=== PATIENT | female | born 1970 ===

== ENCOUNTER → 2021-01-03 09:02 | Outpatient (BNVA) | payer BC, SELFPAY | PROVIDERS: PCP Physician Assistant; Visit Provider Family Medicine Adult Medicine ==

== ENCOUNTER 2023-10-22 09:36 | Outpatient (AMB) | payer MEDICARE, OTHER, SELFPAY ==
--- NOTE | 2023-10-22 09:38 | MHC.PC.OV ---
Vital Signs 10/22/23 09:39 Height 5 ft 3 in Weight 243 lb BMI 43.0 Intake Visit Reasons: HTN/Medication F/U Allergies cephalexin [Keflex] Allergy (Unknown, Verified 01/01/22 13:00) Unknown ibuprofen Allergy (Unknown, Verified 01/01/22 13:00) unknown penicillin V Allergy (Unknown, Verified 01/01/22 13:00) Unknown Sulfa (Sulfonamide Antibiotics) Allergy (Unknown, Verified 01/01/22 13:00) Unknown tramadol Allergy (Unknown, Verified 01/01/22 13:00) unknown hydrochlorothiazide Adverse Reaction (Intermediate, Verified 01/01/22 13:00) gout arthritis Tobacco use date assessed: 10/31/20 [facility] Medical History Cervical arthritis Lumbar spondylosis Surgical History History of cholecystectomy History of hysterectomy History of incision and drainage Family History Father No problems noted. Mother Breast cancer Social History Housing: Apartment Alcohol intake: never Patient Tobacco Use Status: Current everyday Tobacco user Cigarettes Per Day: 10 e-Cigarette/Vaping Use: Never Used service: No Current occupational status: disabled Questionnaire Thrive Questionnaire Date Thrive assessed: 10/31/20 SAVAGE-7 AMB Questionnaire SAVAGE-7 Date SAVAGE - 7 assessed: 10/31/20 Source: Developed by Drs. Fred Flood, Judi Lomeli, Tio Yi and colleagues, with an educational bo from [employer]. Physical exam (Primary Care) Tobacco/Smoking Status: Tobacco use Status Tobacco use date assessed 10/31/20 06/08/21 09:53 Patient Tobacco Use Status Current everyday Tobacco 01/01/22 13:04 e-Cigarette/Vaping Use Never Used 06/08/21 09:53 Thrive Assessment: Date of Thrive Assessment Date Thrive assessed 10/31/20 06/08/21 09:53 Coding
[2023-10-22 09:39] VITALS: BP 170/120; PULSE 85; O2SAT 98; BMI 43.0
--- NOTE | 2023-10-22 09:42 | MHC.PC.OV ---
Vital Signs 10/22/23 09:39 Height 5 ft 3 in Weight 243 lb BMI 43.0 BP 170/120 H Blood Pressure Location Lt brachial Position Sitting Pulse 85 Pulse Source Pulse Oximeter Pulse Oximetry (%) 98 Oxygen Delivery Method Room Air Intake Visit Reasons: PE Intake Note: Patient is here today for a physical. Intellectual Property Paralegal Required: No Accompanied by: Self / Same As Patient Allergies cephalexin [Keflex] Allergy (Unknown, Verified 10/22/23 09:51) Unknown ibuprofen Allergy (Unknown, Verified 10/22/23 09:51) unknown penicillin V Allergy (Unknown, Verified 10/22/23 09:51) Unknown Sulfa (Sulfonamide Antibiotics) Allergy (Unknown, Verified 10/22/23 09:51) Unknown tramadol Allergy (Unknown, Verified 10/22/23 09:51) unknown hydrochlorothiazide Adverse Reaction (Intermediate, Verified 10/22/23 09:51) gout arthritis Tobacco use date assessed: 10/22/23 Dental Screening Dental Screen Date: 10/22/23 Did you have a dental visit in the last 12 months?: No Did you have a dental problem in the last 6 months where you did not have access to dental care?: No Was dental information given to patient?: Patient has dentist HPI PE HPI Details Patient is a 53-year-old female here today for routine annual physical. Patient has a past medical history significant for obesity, hypertension, smoker, chronic axillary hidradenitis, depression. .. ..HTN:? Patient reports she has been out of her blood pressure medication over the last 2 weeks. Will restart her amlodipine and propranolol. Reports been under lot of stress and continues to smoke which likely causing higher blood pressures..? She does report having times of vision disturbances and headaches though denies any chest discomfort, shortness of breath. .. ..Axillary hidradenitis:? Patient has multiple bouts of axillary hidradenitis requiring prednisone and oral antibiotics.? She has had multiple attempts on D&C of her cyst though continues to recurrent. She would like to follow up with Dermatology for more definitive treatment. .. ..Insomnia: Is using? ambien nightly and understands this medication is habit-forming though reports she needs to get good sleep in order to function well during the day.? She has trialed many different [id number] sleep aids and prescribed sleep medications in the past.. .. ..Smoking: Unfortunately still smokes 10 cigs.? She reports she does have Chantix at home though is not ready to start the medication as she feels her stress is too high at this time due to her family issues.? We did discuss perhaps giving a referral to the lung cancer screening program as she has been smoking since her teenage years though she declines at this time. .. ..Chronic back pain: She does have chronic lower back pain to which she has has done therapy in medication in the past that have not been effective. She continues to be in pain though has been able to manage. Continues to ambulate with walker for assistance. .. .Depression; reports she has been able to deal with her depression. Has not been talking to a therapist. She has family issues that seem to trigger her depression .. Colon cancer screening: Needs colonoscopy Vaccines: Up-to-date with pneumonia, COVID vaccines. Needs new tetanus vaccine-declines today, need shingles .. Mammogram: Needs up-to-date mammogram [employer]: need PAPs - See [facility] ( [place]) she promises to make an appointment for Pap screening [facility] Medical History Cervical arthritis Lumbar spondylosis Surgical History History of incision and drainage History of hysterectomy History of cholecystectomy Family History Father No problems noted. Mother Breast cancer Social History Housing: Apartment Alcohol intake: never Patient Tobacco Use Status: Current everyday Tobacco user Cigarettes Per Day: 10 e-Cigarette/Vaping Use: Never Used service: No Current occupational status: disabled Cognitive needs: No Hearing needs: No Vision needs: No Questionnaire PHQ-9 Over the last 2 weeks, how often have you been bothered by any of the following problems? 1. Little interest or pleasure in doing things: not at all 2. Feeling down, depressed, or hopeless: not at all 3. Trouble falling or staying asleep, or sleeping too much: not at all 4. Feeling tired or having little energy: not at all 5. Poor appetite or overeating: not at all 6. Feeling bad about yourself - or that you are a failure or have let yourself or your family down: not at all 7. Trouble concentrating on things, such as reading the newspaper or watching television: not at all 8. Moving or speaking so slowly that other people could have noticed. Or the opposite - being so fidgety or restless that you have been moving around a lot more than usual: not at all 9. Thoughts that you would be better off or of hurting yourself in some way: not at all Total score: 0 Depression Screening Interpretation: Negative Depression Screening Done: Yes 70111 - PHQ-9 Billing: Yes Source: Developed by Drs. Fred Flood, Judi Lomeli, Tio Yi and colleagues, with an educational bo from [employer]. Thrive Questionnaire Date Thrive assessed: 10/22/23 I am a: Patient What is your living situation today?: I have a steady place to live Within the past 12 months, did the food you bought not last and you didn't have the money to get more?: Never true Within the past 12 months, did you worry whether your food would run out before you got money to buy more?: Never true Do you have trouble paying for medicines?: No Do you have trouble getting transportation to medical appointments?: No Do you have trouble paying your heating and electricity bill?: No Do you have trouble taking care of your child, family member or friend?: No Do you have trouble with day-to-day activities such as bathing, preparing meals, shopping, managing finances, etc.?: No Are you currently unemployed and looking for a job?: No Are you interested in more education?: No Please select the resources that you would like help with: None Currently or been in a relationship where the following occur: No concerns reported THRIVE Score: 0 AUDIT C Alcohol Use Questionnaire (AUDIT-C) 1. How often do you have a drink containing alcohol?: Never 3. How often do you have six or more drinks on one occasion?: Never Total Score: 0 Score Reviewed/Action Taken: No SAVAGE-7 AMB Questionnaire SAVAGE-7 Date SAVAGE - 7 assessed: 10/22/23 Feeling nervous, anxious, or on edge: 0 = Not at all Not being able to stop or control worryin = Not at all Worrying too much about different things: 0 = Not at all Trouble relaxin = Not at all Being so restless that it is hard to sit still: 0 = Not at all Becoming easily annoyed or irritable: 0 = Not at all Feeling afraid as if something awful might happen: 0 = Not at all Total SAVAGE-7 score (0-4 normal; 5-9 mild; 10-14 moderate; 15-21 severe): 0 Source: Developed by Drs. Fred Flood, Judi Lomeli, Tio Yi and colleagues, with an educational bo from [employer]. SAVAGE-7 Assessment Billing SAVAGE-7 Assessment Tool: SAVAGE-7 Assessment 29358 Review of Systems Const Denies body aches, Denies chills, Denies excessive sweating, Denies fatigue, Denies fever(s) and Denies headache(s) Eyes Denies blurry vision ENT Denies dysphagia, Denies vertigo, Denies dizziness, Denies headache(s), Denies hearing loss and Denies tinnitus Card Denies chest pain, Denies chest pain with activity, Denies syncope, Denies irregular heart rhythm and Denies dyspnea Resp Denies chest congestion, Denies cough, Denies hemoptysis, Denies dyspnea and Denies wheezing GI Denies abdominal pain, Denies melena, Denies hematochezia, Denies coffee ground emesis, Denies dysphagia, Denies diarrhea, Denies nausea and Denies vomiting Denies urinary frequency, Denies dysuria, Denies urinary hesitancy and Denies urinary urgency Musc Denies arthralgias, Denies limited range of motion, Denies muscle cramps and Denies muscle weakness Skin/Breast Denies rash and Denies skin ulcer Neuro Denies Abnormal speech present, Denies confusion, Denies vertigo, Denies dizziness, Denies syncope, Denies headache(s), Denies memory loss and Denies seizure-like activity Psych Denies anxiety, Denies confusion, Denies depression, Denies memory loss, Denies panic attacks and Denies paranoia Endo Denies excessive sweating, Denies fatigue, Denies flushing, Denies polydipsia and Denies polyuria Aller/Immun Denies wheezing Physical exam (Primary Care) BMI result Body Mass Index 43.0 Tobacco/Smoking Status: Tobacco use Status Tobacco use date assessed 10/31/20 06/08/21 09:53 Patient Tobacco Use Status Current everyday Tobacco 01/01/22 13:04 e-Cigarette/Vaping Use Never Used 06/08/21 09:53 Are you ready to quit: Yes Tobacco cessation counseling provided: Yes Items discussed: Nicotine replacement Relapse Prevention: discussed the importance of a supportive environment, discussed negative mood or depression after quitting, weight gain after smoking is common and discussed dietary, exercise and/or lifestyle changes Number of minutes spent counselin CPT code: 03712 - 4-10 Minutes Depression Screening Interpretation: Negative Thrive Assessment: Date of Thrive Assessment Date Thrive assessed 10/31/20 06/08/21 09:53 Currently or been in a relationship where the following occur: No concerns reported Const General: cooperative, comfortable, no acute distress, alert and awake; No confusion Orientation/consciousness: oriented to person, oriented to place, patient oriented x3 and No confusion HENMT Head: Yes normocephalic Ears: external ears normal and TM's normal bilaterally Face and sinus: No sinus tenderness Mouth: Normal oral and palatal mucosa present and tongue normal Teeth and gingiva: dentition normal and gingiva normal Throat: Yes posterior oropharynx normal, Yes tonsils normal and Yes uvula midline Eyes Conjunctivae: conjunctivae normal Sclerae: sclerae normal Pupils: Equal, round and reactive pupils present EOM: EOMs intact bilaterally Direct Ophthalmoscopy: No no photophobia Neck Neck: Yes no lymphadenopathy, No tender and Yes no JVD Thyroid: Thyroid normal Carotids: no bruits Chest Chest palpation & inspection: no tenderness Resp Effort & Inspection: normal respiratory effort, no audible wheezes, not labored and no stridor Auscultation: no crackles, no rales, no rhonchi and no wheezes Cardio Jugular venous distension: no JVD Rate: regular rate, not bradycardic and not tachycardic Rhythm: regular rhythm Bruits: no carotid bruits Peripheral pulses: Peripheral pulses 2+ throughout GI Inspection: Yes normal to inspection, No abdominal wall ecchymosis and No visible herniation Palpation (GI): Soft to palpation, nontender, no guarding, not rigid and No hepatosplenomegaly present Auscultation: normoactive bowel sounds Abdomen image: 1. CYSTIC LIKE ERYTHEMATOUS MASS OVER THE ABDOMINAL SKIN. General: Yes no CVA tenderness Back/Spine/Pelvis Back: no CVA tenderness and No back tenderness Cervical Spine: cervical ROM normal Thoracic/Lumbar Spine: thoracic and lumbar spine normal to inspection, straight leg raise negative bilaterally, No thoraco-lumbar ROM limited and No lumbar spinal tenderness Skin Lesions: no lesions Rashes: no rashes Wounds: no wounds Neuro General: oriented to person, oriented to place, patient oriented x3, CN's II-XI intact bilaterally and No confusion Cranial nerves: Yes Equal, round and reactive pupils present and Yes Normal accommodation reflex present Cognition (Neuro): normal cognition Speech: No Abnormal speech present Gait exam (Neuro): Normal gait present Motor exam (neuro): 5/5 motor strength present throughout Extrem Right upper extremity: full ROM; no cyanosis Left upper extremity: full ROM; no cyanosis Right lower extremity: no edema Left lower extremity: no edema Psych Appearance: grossly normal Mental Status: mental status grossly normal Affect: normal affect Attitude: cooperative Thought process: Normal thought process present Assessment and Plan Assessment & Plan (1) Annual physical exam: Code(s): Z00.00 - Encounter for general adult medical examination without abnormal findings (2) HTN (hypertension): Code(s): I10 - Essential (primary) hypertension Qualifiers: Hypertension type: essential hypertension Qualified Code(s): I10 - Essential (primary) hypertension Plan: Patient's blood pressure today in office elevated. Has been without her blood pressure medication over last 2 weeks. Will restart amlodipine and propranolol. Advised to monitor blood pressure more regularly at home to ensure stable. She denies checking blood pressure at home on a regular basis. Goal blood pressures to be below 140/90. (3) Smoker: Code(s): F17.200 - Nicotine dependence, unspecified, uncomplicated Plan: Patient does understand she needs to quit smoking. She is interested in restarting Chantix though . (4) Hidradenitis: Code(s): L73.2 - Hidradenitis suppurativa Plan: Patient again has another episode axillary hidradenitis. Was referred to general surgeon though has canceled the appointment. She is requesting Augmentin and prednisone yet again. Will also give her antiseptic cleanser in hopes to reduce the frequency of infection. AGAIN ADVISED PATIENT TO REESTABLISH WITH GENERAL SURGEON FOR MORE PERMANENT TREATMENT. WE DID DISCUSS THE LONG-TERM AFFECTS CHRONIC ANTIBIOTIC USE. (5) MDD (major depressive disorder), recurrent episode, moderate: Code(s): F33.1 - Major depressive disorder, recurrent, moderate Plan: Patient's PHQ-9 score 0. She reports her depression is fairly well controlled. Does deal with stress and anxiety due to family issues. At this time not interested in mental health therapy or psychiatric medication at this time. (6) Insomnia: Code(s): G47.00 - Insomnia, unspecified Qualifiers: Insomnia type: primary Qualified Code(s): F51.01 - Primary insomnia Plan: Patient reports she has tried to take a holiday zolpidem though was not able to get full 8 hours asleep. She continues to need Ambien help her sleep. Will continue her on 10 mg Ambien to help her sleep.. 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 (7) Breast cancer screening: Code(s): Z12.39 - Encounter for other screening for malignant neoplasm of breast Qualifiers: Breast cancer screening modality: mammogram Qualified Code(s): Z12.31 - Encounter for screening mammogram for malignant neoplasm of breast Plan: Patient willing to get mammogram (8) Colon cancer screening: Code(s): Z12.11 - Encounter for screening for malignant neoplasm of colon Plan: Patient willing to get colonoscopy. She believes she has colon polyps (9) Lumbar spondylosis: Code(s): M47.816 - Spondylosis without myelopathy or radiculopathy, lumbar region Plan: Patient has chronic low back pain that she is able to manage. Using walker assistance. Not interested in any further injections or medications Orders: Orders Comprehensive Gates. Panel Fast Today I10 - Essential (primary) hypertension MM screening mammo BI Today Z12.31 - Encounter for screening mammogram for malignant neoplasm of breast Microalbumin, Random (w Creat) Today I10 - Essential (primary) hypertension Complete Blood Count no Diff Today I10 - Essential (primary) hypertension Referrals Gastroenterology Referral Z12.11 - Encounter for screening for malignant neoplasm of colon Dermatology Referral L73.2 - Hidradenitis suppurativa Medications: New varenicline 0.5 mg PO; Take 0.5 mg qd x 3 days, then 0.5 mg b.i.d. x4 days 7 days 11 tabs 0RF F17.200 - Nicotine dependence, unspecified, uncomplicated varenicline 1 mg PO BID 28 days 56 tabs 3RF F17.200 - Nicotine dependence, unspecified, uncomplicated prednisone take 3 tabs x 3 days , take 2 tabs x 3 days , take 1 tablet x3 days 10 mg PO DIRECTED 9 days 18 tabs 0RF I88.9 - Nonspecific lymphadenitis, unspecified amoxicillin-pot clavulanate 875-125 mg 1 tab PO BID 7 days 14 tabs 0RF I88.9 - Nonspecific lymphadenitis, unspecified Refilled propranolol ER 60 mg PO DAILY 90 days 90 caps 2RF I10 - Essential (primary) hypertension zolpidem (Ambien) 10 mg PO BEDTIME 30 days PRN 30 tabs 3RF sleep G47.00 - Insomnia, unspecified amlodipine 10 mg PO DAILY 90 tabs 2RF I10 - Essential (primary) hypertension furosemide (Lasix) 20 mg PO DAILY 10 days 10 tabs 0RF I10 - Essential (primary) hypertension Discontinued oxycodone-acetaminophen 5-325 mg (Percocet) Partial Fill upon patient request. Discontinued Reason: Doctor's Order 1 tab PO BID 10 tabs 0RF pain Patient Instructions: Goal: COMPLETELY QUIT SMOKING, BLOOD PRESSURE TO BE BELOW 140/90 Barriers: Adherence to physical activity and healthy eating habits, chronic low back pain. Coding Level of Care Code Est Pt Prev Care 40-64y(49050) Diagnoses Annual physical exam Z00.00 Essential hypertension I10 Hypertension type: essential hypertension Smoker F17.200 Hidradenitis L73.2 MDD (major depressive disorder), recurrent episode, moderate F33.1 Primary insomnia F51.01 Insomnia type: primary Encounter for screening mammogram for malignant neoplasm of breast Z12.31 Breast cancer screening modality: mammogram Colon cancer screening Z12.11 Lumbar spondylosis M47.816 Additional Codes SAVAGE-7 Assessment Billing - SAVAGE-7 Assessment Tool: SAVAGE-7 Assessment [id number] ([id number]) Vital Signs *Quality* - CPT code: 89030 - 4-10 Minutes ([id number])
== END 2023-10-22 10:06 | disposition home or self-care (01) ==
PROVIDERS: PCP Physician Assistant; Visit Provider Physician Assistant
DX: Z00.00 Encounter for general adult medical examination without abnormal findings (principal); I10 Essential (primary) hypertension; F17.210 Nicotine dependence, cigarettes, uncomplicated; F33.1 Major depressive disorder, recurrent, moderate; L73.2 Hidradenitis suppurativa; F51.01 Primary insomnia; Z12.31 Encounter for screening mammogram for malignant neoplasm of breast; Z12.11 Encounter for screening for malignant neoplasm of colon; M47.816 Spondylosis without myelopathy or radiculopathy, lumbar region
CPT/HCPCS: 99396; 99406

== ENCOUNTER 2024-12-01 14:49 | Outpatient (AMB) | payer OTHER, SELFPAY ==
--- NOTE | 2024-12-01 15:25 | A.OFFPC_ITS ---
Vital Signs 3 12/01/24 15:27 Height 5 ft 3 in Weight 245 lb 8 oz BMI 43.5 BP 120/80 Blood Pressure Location Lt brachial Position Sitting Pulse 69 Pulse Source Pulse Oximeter Temp 97.1 F Temp Source Temporal Artery Scan Pulse Oximetry (%) 97 Oxygen Delivery Method Room Air Intake Visit Reasons: annual physical Intake Note: Patient is here today for a physical. Pin Puller Required: No Executive Director Of Nursing: Not Required per policy Accompanied by: Self / Same As Patient Allergies cephalexin (Keflex) Allergy (Unknown, Verified 12/01/24 15:39) Unknown ibuprofen Allergy (Unknown, Verified 12/01/24 15:39) unknown penicillin V Allergy (Unknown, Verified 12/01/24 15:39) Unknown Sulfa (Sulfonamide Antibiotics) Allergy (Unknown, Verified 12/01/24 15:39) Unknown tramadol Allergy (Unknown, Verified 12/01/24 15:39) unknown hydrochlorothiazide Adverse Reaction (Intermediate, Verified 12/01/24 15:39) gout arthritis Medication List - Last Reconciled 12/01/24 by Viet San PA-C amlodipine 10 mg PO DAILY ergocalciferol (vitamin D2) 1,250 mcg PO QWEEK nystatin 1 appl topical BID propranolol ER 60 mg PO DAILY 90 days zolpidem (Ambien) 10 mg PO BEDTIME PRN 30 days Tobacco use date assessed: 12/01/24 Dental Screening Dental Screen Date: 12/01/24 Did you have a dental visit in the last 12 months?: No Did you have a dental problem in the last 6 months where you did not have access to dental care?: No Was dental information given to patient?: No HPI annual physical 2 HPI0 Details Patient is a 54-year-old female here today for routine annual physical. Patient has a past medical history significant for obesity, hypertension, smoker, chronic axillary hidradenitis, depression. .. ..HTN:? PATIENT CONTINUES ON AMLODIPINE AND PROPRANOLOL FOR BLOOD PRESSURE. Reports been under lot of stress and continues to smoke which likely causing higher blood pressures..? She does report having times of vision disturbances and headaches though denies any chest discomfort, shortness of breath. .. ..Axillary hidradenitis:? Patient has mu ltiple bouts of axillary hidradenitis requiring prednisone and oral antibiotics.? She has had multiple attempts on D&C of her cyst though continues to recurrent. She would like to follow up with Dermatology for more definitive treatment (? Biologic). .. ..Insomnia: Is using? ambien nightly and understands this medication is habit- forming though reports she needs to get good sleep in order to function well during the day.? She has trialed many different nyca-avp-shoavca sleep aids and prescribed sleep medications in the past.. .. ..Smoking: Unfortunately still smokes 10 cigs.? She reports she does have Chantix at home though is not ready to start the medication as she feels her stress is too high at this time due to her family issues.? We did discuss perhaps giving a referral to the lung cancer screening program as she has been smoking since her teenage years though she declines at this time. .. 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 She continues to be in pain though has been able to manage. Continues to ambulate with walker for assistance. .. .Depression; reports she has been able t o deal with her depression. Has not been talking to a therapist. She has family issues that seem to trigger her depression .. Colon cancer screening: Needs colonoscopy Vaccines: Up-to-date with pneumonia, COVID vaccines. Needs new tetanus vaccine-declines today, need shingles .. Mammogram: Needs up-to-date mammogram Rail Car Repairer: need PAPs - See [facility] ( [place]) she promises to make an appointment for Pap screening [facility] Medical History Cervical arthritis Lumbar spondylosis Surgical History History of incision and drainage History of hysterectomy History of cholecystectomy Family History Father No problems noted. Mother Breast cancer Social History Housing: Apartment Alcohol intake: never Patient Tobacco Use Status: Current everyday Tobacco user Cigarette Packs Per Day: 0.25 Cigarettes Per Day: 5 e-Cigarette/Vaping Use: Never Used Second Hand Smoke Exposure: Yes service: No Current occupational status: disabled Cognitive needs: Yes (Walker) Hearing needs: No Vision needs: Yes (Glasses) Questionnaire PHQ-9 Over the last 2 weeks, how often have you been bothered by any of the following problems? 1. Little interest or pleasure in doing things: not at all 2. Feeling down, depressed, or hopeless: not at all 3. Trouble falling or staying asleep, or sleeping too much: not at all 4. Feeling tired or having little energy: not at all 5. Poor appetite or overeating: not at all 6. Feeling bad about yourself - or that you are a failure or have let yourself or your family down: not at all 7. Trouble concentrating on things, such as reading the newspaper or watching television: not at all 8. Moving or speaking so slowly that other people could have noticed. Or the opposite - being so fidgety or restless that you have been moving around a lot more than usual: not at all 9. Thoughts that you would be better off or of hurting yourself in some way: not at all Total score: 0 Depression Screening Interpretation: Negative Depression Screening Done: Yes 08816 - PHQ-9 Billing: Yes Source: Developed by Drs. Fred Flood, Judi Lomeli, Tio Yi and colleagues, with an educational bo from [employer]. Thrive Questionnaire Date Thrive assessed: 12/01/24 I am a: Patient What is your living situation today?: I have a steady place to live Within the past 12 months, did the food you bought not last and you didn't have the money to get more?: Never true Within the past 12 months, did you worry whether your food would run out before you got money to buy more?: Never true Do you have trouble paying for medicines?: No Do you have trouble getting transportation to medical appointments?: No Do you have trouble paying your heating and electricity bill?: No Do you have trouble taking care of your child, family member or friend?: No Do you have trouble with day-to-day activities such as bathing, preparing meals, shopping, managing finances, etc.?: No Are you currently unemployed and looking for a job?: No Are you interested in more education?: No Please select the resources that you would like help with: None Currently or been in a relationship where the following occur: No concerns reported THRIVE Score: 0 AUDIT C Alcohol Use Questionnaire (AUDIT-C) 1. How often do you have a drink containing alcohol?: Never Total Score: 0 SAVAGE-7 AMB Questionnaire SAVAGE-7 Date SAVAGE - 7 assessed: 12/01/24 Feeling nervous, anxious, or on edge: 0 = Not at all Not being able to stop or control worryin = Not at all Worrying too much about different things: 0 = Not at all Trouble relaxin = Not at all Being so restless that it is hard to sit still: 0 = Not at all Becoming easily annoyed or irritable: 0 = Not at all Feeling afraid as if something awful might happen: 0 = Not at all Total SAVAGE-7 score (0-4 normal; 5-9 mild; 10-14 moderate; 15-21 severe): 0 Source: Developed by Drs. Fred Flood, Judi Lomeli, Tio Yi and colleagues, with an educational bo from [employer]. Review of Systems Const Denies body aches, Denies chills, Denies excessive sweating, Denies fatigue, Denies fever(s) and Denies headache(s) Eyes Denies blurry vision ENT Denies dysphagia, Denies vertigo, Denies dizziness, Denies headache(s), Denies hearing loss and Denies tinnitus Card Denies chest pain, Denies chest pain with activity, Denies syncope, Denies irregular heart rhythm and Denies dyspnea Resp Denies chest congestion, Denies cough, Denies hemoptysis, Denies dyspnea and Denies wheezing GI Denies abdominal pain, Denies melena, Denies hematochezia, Denies coffee ground emesis, Denies dysphagia, Denies diarrhea, Denies nausea and Denies vomiting Denies urinary frequency, Denies dysuria, Denies urinary hesitancy and Denies urinary urgency Musc Denies arthralgias, Denies limited range of motion, Denies muscle cramps and Denies muscle weakness Skin/Breast Denies rash and Denies skin ulcer Neuro Denies Abnormal speech present, Denies confusion, Denies vertigo, Denies dizziness, Denies syncope, Denies headache(s), Denies memory loss and Denies seizure-like activity Psych Denies anxiety, Denies confusion, Denies depression, Denies memory loss, Denies panic attacks and Denies paranoia Endo Denies excessive sweating, Denies fatigue, Denies flushing, Denies polydipsia and Denies polyuria Aller/Immun Denies wheezing Physical exam (Primary Care) Vital Signs: Last Vital Signs Temp 97.1 F 12/01/24 15:27 Pulse 69 12/01/24 15:27 BP 120/80 12/01/24 15:27 Pulse Ox 97 12/01/24 15:27 Oxygen Delivery Method Room Air 12/01/24 15:27 BMI result Body Mass Index 43.5 BMI Assessment/Plan discussion: High BMI High, discussed plan: lifestyle, weight reduction, dietary and physical activity Tobacco/Smoking Status: Tobacco use Status Tobacco use date assessed 12/01/24 12/01/24 15:37 Patient Tobacco Use Status Current everyday Tobacco 12/01/24 15:35 e-Cigarette/Vaping Use Never Used 12/01/24 15:35 Are you ready to quit: No Tobacco cessation counseling provided: Yes Items discussed: Nicotine replacement Relapse Prevention: discussed the importance of a supportive environment, discussed negative mood or depression after quitting, weight gain after smoking is common and discussed dietary, exercise and/or lifestyle changes Number of minutes spent counselin CPT code: 53320 - 4-10 Minutes PHQ-9: PHQ-9 Score PHQ-9: Total score 0 12/01/24 15:25 Depression Screening Interpretation: Negative Thrive Assessment: Date of Thrive Assessment Date Thrive assessed 12/01/24 12/01/24 15:25 Currently or been in a relationship where the following occur: No concerns reported Const Other: OBESE General: cooperative, comfortable, no acute distress, alert and awake; No confusion Orientation/consciousness: oriented to person, oriented to place, patient oriented x3 and No confusion HENMT Head: Yes normocephalic Ears: external ears normal and TM's normal bilaterally Face and sinus: No sinus tenderness Mouth: Normal oral and palatal mucosa present and tongue normal Teeth and gingiva: dentition normal and gingiva normal Throat: Yes posterior oropharynx normal, Yes tonsils normal and Yes uvula midline Eyes Conjunctivae: conjunctivae normal Sclerae: sclerae normal Pupils: Equal, round and reactive pupils present EOM: EOMs intact bilaterally Direct Ophthalmoscopy: No no photophobia Neck Neck: Yes no lymphadenopathy, No tender and Yes no JVD Thyroid: Thyroid normal Carotids: no bruits Chest Chest palpation & inspection: no tenderness Resp Effort & Inspection: normal respiratory effort, no audible wheezes, not labored and no stridor Auscultation: no crackles, no rales, no rhonchi and no wheezes Cardio Jugular venous distension: no JVD Rate: regular rate, not bradycardic and not tachycardic Rhythm: regular rhythm Bruits: no carotid bruits Peripheral pulses: Peripheral pulses 2+ throughout GI Inspection: Yes normal to inspection, No abdominal wall ecchymosis and No visible herniation Palpation (GI): Soft to palpation, nontender, no guarding, not rigid and No hepatosplenomegaly present Auscultation: normoactive bowel sounds General: Yes no CVA tenderness Back/Spine/Pelvis Back: no CVA tenderness and No back tenderness Cervical Spine: cervical ROM normal Thoracic/Lumbar Spine: thoracic and lumbar spine normal to inspection, straight leg raise negative bilaterally, No thoraco-lumbar ROM limited and No lumbar spinal tenderness Skin Other: Lesions: no lesions Rashes: no rashes Wounds: no wounds Neuro General: oriented to person, oriented to place, patient oriented x3, CN's II-XI intact bilaterally and No confusion Cranial nerves: Yes Equal, round and reactive pupils present and Yes Normal accommodation reflex present Cognition (Neuro): normal cognition Speech: No Abnormal speech present Gait exam (Neuro): Normal gait present Motor exam (neuro): 5/5 motor strength present throughout Extrem Right upper extremity: full ROM; no cyanosis Left upper extremity: full ROM; no cyanosis Right lower extremity: no edema Left lower extremity: no edema Psych Appearance: grossly normal Mental Status: mental status grossly normal Affect: normal affect Attitude: cooperative Thought process: Normal thought process present Coding Level of Care Code Est Pt Prev Care 40-64y(80597) Diagnoses Annual physical exam Z00.00 Axillary adenitis I88.9 MDD (major depressive disorder), recurrent episode, moderate F33.1 Essential hypertension I10 Hypertension type: essential hypertension Primary insomnia F51.01 Insomnia type: primary Acute pain of right knee M25.561 Chronicity: acute Menopausal hot flushes N95.1 Class 3 obesity E66.813 Smoker F17.200 Additional Codes PHQ-9 - 34234 - PHQ-9 Billing: Yes ([id number]) Vital Signs *Quality* - CPT code: 11111 - 4-10 Minutes ([id number]) Assessment & Plan Assessment & Plan (1) Annual physical exam: Code(s): Z00.00 - Encounter for general adult medical examination without abnormal findings Category: Medical Plan: as per HPI (2) Axillary adenitis: Code(s): I88.9 - Nonspecific lymphadenitis, unspecified Category: Medical Plan: PLEASE SEE PICTURE SECTION A dermatology referral has been made for further evaluation and management of recurrent cysts. She is interested in a more definitive treatment such as a biologic as she has been dealing with hidradenitis for many many years now The patient is prescribed prednisone and antibiotics to manage acute flare-ups. (3) MDD (major depressive disorder), recurrent episode, moderate: Code(s): F33.1 - Major depressive disorder, recurrent, moderate Category: Medical Plan: Patient's PHQ-9 score positive for depression which has been existing condition for her. She does admit there is a lot of personal issues going on at this time in her family which is causing her more depression and anxiety. Not interested in mental health therapist at this time (4) HTN (hypertension): Code(s): I10 - Essential (primary) hypertension Category: Medical Qualifiers: Hypertension type: essential hypertension Qualified Code(s): I10 - Essential (primary) hypertension Plan: Patient's blood pressure acceptable today in office. Will continue her current dose of amlodipine and propranolol. Goal blood pressures to remain below 140/90 (5) Insomnia: Code(s): G47.00 - Insomnia, unspecified Category: Medical Qualifiers: Insomnia type: primary Qualified Code(s): F51.01 - Primary insomnia Plan: Patient continues with the nightly use of Ambien which has been effective for sleep. (6) Right knee pain: Code(s): M25.561 - Pain in right knee Category: Medical Qualifiers: Chronicity: acute Qualified Code(s): M25.561 - Pain in right knee Plan: The patient will undergo an x-ray to assess the current status of her knee, given the increased swelling and pain. She is advised to visit an orthopedic walk-in clinic for potential joint effusion drainage. (7) Menopausal hot flushes: Code(s): N95.1 - Menopausal and female climacteric states Category: Medical Plan: The patient is advised to try black cohosh, an izxy-ejw-thfhgur supplement, to alleviate hot flashes. (8) Class 3 obesity: Code(s): E66.813 - Obesity, class 3 Category: Medical Plan: Patient does understand her BMI is over 40 and will try to work on better eating habits to reduce her weight. Has not been able to be physically active due to her chronic lower lumbar spine pain to which causes her to be pretty inactive. (9) Smoker: Code(s): F17.200 - Nicotine dependence, unspecified, uncomplicated Category: Social Hx Plan: The patient acknowledges increased smoking due to stress and is advised to consider smoking cessation strategies. Orders: Orders 2 Microalbumin, Random (w Creat) Today I10 - Essential (primary) hypertension Lipid Panel Today L73.2 - Hidradenitis suppurativa Follicle Stimulating Hormone Today N95.1 - Menopausal and female climacteric states XR knee RT 3V Today M25.561 - Pain in right knee Comprehensive [facility]. Panel Fast Today I10 - Essential (primary) hypertension Complete Blood Count no Diff Today I10 - Essential (primary) hypertension Estrogen Today N95.1 - Menopausal and female climacteric states MM screening mammo BI Today Z12.31 - Encounter for screening mammogram for malignant neoplasm of breast Referrals 2 Dermatology Referral L73.2 - Hidradenitis suppurativa Gastroenterology Referral Z12.11 - Encounter for screening for malignant neoplasm of colon Medications: New 2 prednisone Take 3 tablets x3 days, 2 tablets x3 days, 1 tablet x3 days 10 mg PO DIRECTED 18 tabs 0RF 9 days I88.9 - Nonspecific lymphadenitis, unspecified amoxicillin 875 mg PO BID 14 tabs 0RF 7 days I88.9 - Nonspecific lymphadenitis, unspecified clotrimazole-betamethasone 1-0.05 % 1 appl topical BID 45 grams 0RF 30 days B35.4 - Tinea corporis Refilled 2 amlodipine 10 mg PO DAILY 90 tabs 2RF I10 - Essential (primary) hypertension propranolol ER 60 mg PO DAILY 90 caps 2RF 90 days I10 - Essential (primary) hypertension nystatin Externally Twice a day 1 appl topical BID 30 grams 0RF B35.4 - Tinea corporis ergocalciferol (vitamin D2) 1,250 mcg PO QWEEK 4 caps 3RF
[2024-12-01 15:27] VITALS: BP 120/80; PULSE 69; TEMP 36.2; O2SAT 97; BMI 43.5
== END 2024-12-01 16:06 | disposition home or self-care (01) ==
LOC: HO.HMCH 14:49
PROVIDERS: PCP Physician Assistant; Visit Provider Physician Assistant
DX: Z00.00 Encounter for general adult medical examination without abnormal findings (principal); F33.1 Major depressive disorder, recurrent, moderate; Z68.41 Body mass index [BMI] 40.0-44.9, adult; E66.813 Obesity, class 3; I88.9 Nonspecific lymphadenitis, unspecified; I10 Essential (primary) hypertension; F51.01 Primary insomnia; M25.561 Pain in right knee; N95.1 Menopausal and female climacteric states; F17.200 Nicotine dependence, unspecified, uncomplicated

== ENCOUNTER → 2024-12-01 14:49 | Outpatient (BNVA) | payer OTHER, SELFPAY | PROVIDERS: PCP Physician Assistant; Visit Provider Physician Assistant | DX: Z00.00 Encounter for general adult medical examination without abnormal findings (principal); I10 Essential (primary) hypertension; L73.2 Hidradenitis suppurativa; G47.00 Insomnia, unspecified; M54.9 Dorsalgia, unspecified; G89.29 Other chronic pain; I88.9 Nonspecific lymphadenitis, unspecified; F33.1 Major depressive disorder, recurrent, moderate; F51.01 Primary insomnia; M25.561 Pain in right knee; N95.1 Menopausal and female climacteric states; E66.813 Obesity, class 3; B35.4 Tinea corporis; F17.210 Nicotine dependence, cigarettes, uncomplicated; Z68.41 Body mass index [BMI] 40.0-44.9, adult | CPT/HCPCS: 96127 ==

== ENCOUNTER 2025-02-24 10:29 | Outpatient (REF) | payer OTHER, SELFPAY ==
[2025-02-24 14:10] LABS: Hematocrit 44.6 % (37.0-47.0); Hemoglobin 15.0 g/dl (12.0-16.0); Mean Corpuscular HGB Conc 33.6 g/dl (31.0-35.0); Mean Corpuscular Hemoglobin 29.8 pg (27.0-33.0); Mean Corpuscular Volume 88.7 fL (80.0-98.0); NRBC Abs Auto 0.000 X10*3/uL (0.0-0.012); NRBC Pct Auto 0.0 /100WBC (0.0-0.2); Platelet Count 269 X10*3/uL (160-400); Red Blood Count 5.03 X10*6/uL (4.20-5.50); White Blood Count 15.2 X10*3/uL (4.8-10.8)
[2025-02-24 15:05] LABS: Alanine Aminotransferase 18 U/L (0-31); Albumin Level 4.2 g/dL (3.5-5.0); Alkaline Phosphatase 90 U/L (39-117); Anion Gap 13 (12-20); Aspartate Amino Transferase 21 U/L (5-31); Blood Urea Nitrogen 22 mg/dL (9-16); Calcium 9.5 mg/dL (8.4-10.2); Carbon Dioxide 25 mmol/L (22-29); Chloride 109 mmol/L (96-108); Cholesterol 294 mg/dL (<200); Estimated Glomerular Filt Rate 42; HDL Cholesterol 55 mg/dL (>40); Potassium 3.8 mmol/L (3.3-5.1); Sodium 143 mmol/L (135-145); Total Protein 7.3 g/dL (6.5-8.0); Triglycerides 160 mg/dL (<150)
[2025-02-25 03:54] LABS: Follicle Stimulating Hormone 127.9 mIU/mL
== END 2025-02-24 10:30 | disposition home or self-care (01) ==
LOC: HO.HMGCLDS 10:29
PROVIDERS: PCP Physician Assistant; Visit Provider Physician Assistant
DX: I10 Essential (primary) hypertension (principal); N95.1 Menopausal and female climacteric states; L73.2 Hidradenitis suppurativa
CPT/HCPCS: 36415; 80053; 80061; 82672; 83001; 85027